=== PATIENT | female | born 1990 | race Caucasian/White ===

== ENCOUNTER 2016-04-10 18:21 | Emergency (ER) | payer OTHER, BC, MEDICAID ==
[~2016-04-10] VITALS: Ht 167.6 cm; Wt 97.0 kg
[~2016-04-10 18:21] MED LIST: BIRTH CONTROL; CHERATUSSIN AC120 ML PO; NORCO 325 MG-51 TAB PO; QVAR0.08 MG/AC IH; SEPTRA DS 8001 TAB PO; VENTOLIN0.09 MG IH; ZITHROMAX TRI-500 MG PO
[2016-04-10] MEDS ORDERED: ALLEGRA 60MG TA60 MG PO (18:29)
[2016-04-10 18:30] VITALS: TEMP 98.4
[2016-04-10] MEDS ORDERED: PRENATAL1 TA7 PO (18:30)
[2016-04-10 19:31] LABS: PH 6 (5-8); SQUAMOUS EPITHELIAL 0-2 /hpf; URINE APPEARANCE Hazy; URINE BACTERIA Rare /hpf; URINE BILIRUBIN Negative (NEGATIVE); URINE BLOOD Negative (NEGATIVE); URINE COLOR Yellow; URINE GLUCOSE Negative (NEGATIVE); URINE KETONE Negative (NEGATIVE); URINE RBC 0-2 /hpf; URINE UROBILINOGEN Negative (NEGATIVE); URINE WBC 0-2 /hpf
[2016-04-10 19:43] LABS: BASO % 0.2 % (0.0-2.0); EOS # 0.4 (0.0-0.7); EOS % 2.8 % (0-4.0); GRAN # 10.5 (1.4-6.5); GRAN % 74.6 % (42.2-75.2); HEMATOCRIT 38.1 % (37.0-47.0); HEMOGLOBIN 13.2 g/dl (12.5-16.0); LYMPH # 2.4 (1.2-3.4); LYMPH % 17.1 % (20.0-51.0); MEAN CELL VOLUME 92 fl (80.0-100.0); MEAN CORPUSCULAR HEMOGLOBIN 32 pg (27.0-31.0); MEAN CORPUSCULAR HGB CONC 35 g/dl (33.0-37.0); MEAN PLATELET VOLUME 10.5 fl (7.4-10.4); MONO # 0.7 (0.1-0.6); PLATELET COUNT 223 K/mm3 (130-400); RED BLOOD COUNT 4.13 M/mm3 (4.10-5.30); WHITE BLOOD COUNT 14.1 K/mm3 (4.8-10.8)
[2016-04-10] MEDS ORDERED: FLAGYL500 MG PO (21:08)
[2016-04-10 21:32] VITALS: BP 128/70; PULSE 68
[2016-04-10 21:55] LABS: CHLAMYDIA/TRACH by PCR Female NOT DETECTED; NEISSERIA GON by PCR Female NOT DETECTED
== END 2016-04-10 21:33 | disposition home or self-care (01) ==
LOC: COL.ER 18:21
PROVIDERS: Nurse Practitioner
DX: O23.591 Infection of other part of genital tract in pregnancy, first trimester (principal); N76.0 Acute vaginitis; B96.89 Other specified bacterial agents as the cause of diseases classified elsewhere; R10.2 Pelvic and perineal pain; Z3A.01 Less than 8 weeks gestation of pregnancy

== ENCOUNTER 2016-10-30 16:38 | Emergency (ER) | payer BC, MEDICAID ==
[~2016-10-30] VITALS: Ht 167.6 cm; Wt 108.6 kg
[~2016-10-30 16:38] MED LIST changes: +ALLEGRA 60MG TA60 MG PO; +FLAGYL500 MG PO; +PRENATAL1 TA7 PO
[2016-10-30] MEDS ORDERED: PULMICORT180 MCG/Ac IH (16:44)
[2016-10-30] MEDS ORDERED: FLONASEALLERGY NS (16:44)
[2016-10-30] MEDS ORDERED: ALLEGRA 180MG180 MG PO (16:45)
[2016-10-30 17:50] LABS: MEAN CELL VOLUME 94 fl (80.0-100.0); MEAN CORPUSCULAR HEMOGLOBIN 32 pg (27.0-31.0); MEAN CORPUSCULAR HGB CONC 34 g/dl (33.0-37.0); MEAN PLATELET VOLUME 10.8 fl (7.4-10.4); PLATELET COUNT 197 K/mm3 (130-400); RED BLOOD COUNT 3.77 M/mm3 (4.10-5.30); REDCELL DISTRIBUTION WIDTH-CV 13.7 % (11.5-14.5)
[2016-10-30 17:59] LABS: INR 1.1 (0.8-3.0); PROTHROMBIN TIME 11.7 SECONDS (9.7-12.8)
[2016-10-30 18:00] LABS: ADD PATHOLOGY DIFF REVIEW NO; ADJUSTED CALCIUM 9.9 mg/dL (8.4-10.2); ALANINE AMINOTRANSFERASE 40 U/L (9-52); ALBUMIN 3.5 gm/dL (3.5-5.0); ALKALINE PHOSPHATASE 125 U/L (50-136); ANION GAP 12 mmol/L (7-16); BILIRUBIN,TOTAL 0.5 mg/dL (0.0-1.0); BLOOD UREA NITROGEN 11 mg/dL (7-17); CALCIUM 9.5 mg/dL (8.4-10.2); CARBON DIOXIDE 17 mmol/L (22-30); CHLORIDE 108 mmol/L (98-107); CREATININE, serum 0.66 mg/dL (0.52-1.25); GLUCOSE 115 mg/dL (74-106); HEMATOCRIT 35.6 % (37.0-47.0); POTASSIUM 3.9 mmol/L (3.4-5.0); SODIUM 137 mmol/L (137-145); TOTAL PROTEIN 6.7 gm/dL (6.4-8.2)
[2016-10-30 18:11] LABS: TROPONIN-I < 0.012 ng/mL (0.000-0.034)
[2016-10-30 18:29] LABS: PH 5 (5-8); URINE APPEARANCE Cloudy; URINE BACTERIA Rare /hpf; URINE BILIRUBIN Negative (NEGATIVE); URINE BLOOD Negative (NEGATIVE); URINE COLOR Amber; URINE GLUCOSE Negative (NEGATIVE); URINE KETONE Negative (NEGATIVE); URINE UROBILINOGEN Negative (NEGATIVE)
[2016-10-30 18:49] LABS: BAND 14 % (0-10); EOSINOPHIL 1 % (0-4); NEUTROPHILS 77 % (42.0-75.2); TOTAL CELLS COUNTED 100
[2016-10-30 18:50] LABS: PLATELET ESTIMATE NORMAL (NORMAL)
[2016-10-30] MEDS ORDERED: MACROBID 1100 MG/CAP PO (21:44)
[2016-10-30 22:23] VITALS: BP 120/72; PULSE 93; TEMP 97.8
== END 2016-10-30 22:25 | disposition home or self-care (01) ==
LOC: COL.ER 16:38
PROVIDERS: Emergency Medicine
DX: N39.0 Urinary tract infection, site not specified (principal); R00.2 Palpitations; R07.2 Precordial pain; J45.909 Unspecified asthma, uncomplicated
CPT/HCPCS: J0696; J7030; Q9967

== ENCOUNTER 2016-11-02 02:37 | Inpatient (IN) | payer BC, MEDICAID ==
[~2016-11-02] VITALS: Ht 167.6 cm; Wt 108.6 kg
[2016-11-02] VITALS (22 sets, daily range): BP systolic 110–160; BP diastolic 59–98; PULSE 61–99; TEMP 97.3–98.5
[~2016-11-02 02:37] MED LIST changes: +ALLEGRA 180MG180 MG PO; +FLONASEALLERGY NS; +MACROBID 1100 MG/CAP PO; +PULMICORT180 MCG/Ac IH
[2016-11-02] MEDS ORDERED: TYLENOL 500MG500 MG PO (02:54)
[2016-11-02 03:05] LABS: BASO % 0.3 % (0.0-2.0); EOS # 0.2 (0.0-0.7); EOS % 1.2 % (0-4.0); GRAN # 12.4 (1.4-6.5); GRAN % 79.9 % (42.2-75.2); HEMOGLOBIN 12.1 g/dl (12.5-16.0); LYMPH # 1.8 (1.2-3.4); LYMPH % 11.7 % (20.0-51.0); MEAN CELL VOLUME 93 fl (80.0-100.0); MEAN CORPUSCULAR HEMOGLOBIN 32 pg (27.0-31.0); MEAN CORPUSCULAR HGB CONC 34 g/dl (33.0-37.0); MEAN PLATELET VOLUME 11.3 fl (7.4-10.4); MONO % 6.3 % (1.7-9.3); PLATELET COUNT 191 K/mm3 (130-400); REDCELL DISTRIBUTION WIDTH-CV 13.5 % (11.5-14.5); WHITE BLOOD COUNT 15.5 K/mm3 (4.8-10.8)
[2016-11-02 03:10] LABS: HEMATOCRIT 35.5 % (37.0-47.0)
[2016-11-02 03:14] LABS: PARTIAL THROMBOPLASTIN TIME 30.8 SECONDS (26.0-37.0)
[2016-11-02 03:19] LABS: ALBUMIN 3.1 gm/dL (3.5-5.0); BILIRUBIN,TOTAL 0.5 mg/dL (0.0-1.0); CALCIUM 9.3 mg/dL (8.4-10.2); CREATININE, serum 0.59 mg/dL (0.52-1.25); POTASSIUM 3.8 mmol/L (3.4-5.0); TOTAL PROTEIN 6.5 gm/dL (6.4-8.2)
[2016-11-02 03:53] LABS: PH 6 (5-8); SQUAMOUS EPITHELIAL 0-2 /hpf; URINE APPEARANCE Clear; URINE BACTERIA None Seen /hpf; URINE BILIRUBIN Negative (NEGATIVE); URINE BLOOD Negative (NEGATIVE); URINE COLOR Yellow; URINE GLUCOSE Negative (NEGATIVE); URINE KETONE Negative (NEGATIVE); URINE RBC 0-2 /hpf; URINE UROBILINOGEN Negative (NEGATIVE); URINE WBC 0-2 /hpf
[2016-11-02 10:33] LABS: AMPHETAMINE URINE NEGATIVE; BARBITURATES URINE NEGATIVE; BENZODIAZEPINES URINE NEGATIVE; BUPRENORPHINE URINE NEGATIVE; METHADONE URINE NEGATIVE; OPIATES URINE NEGATIVE; OXYCODONE URINE NEGATIVE; PHENCYCLIDINE URINE NEGATIVE; PROPOXYPHENE URINE NEGATIVE; THC CANNABINOIDS URINE NEGATIVE
[2016-11-03 07:34] VITALS: BP 129/62; PULSE 79; TEMP 97.5
[2016-11-03] MEDS ORDERED: BREASTPUMP MC (08:54)
[2016-11-03] MEDS ORDERED: PERCOCET 325 MG1 TA2 PO (08:54)
[2016-11-03] MEDS ORDERED: IBU800 M1 PO (08:54)
[2016-11-03 10:57] LABS: HEMATOCRIT 28.3 % (37.0-47.0); HEMOGLOBIN 9.5 g/dl (12.5-16.0)
[2016-11-03 20:40] VITALS: BP 126/66; PULSE 97; TEMP 97.5
[2016-11-04 07:59] VITALS: BP 114/61; PULSE 76; TEMP 97.7
[2016-11-04 15:58] VITALS: BP 125/62; PULSE 85; TEMP 97.4
[2016-11-04 21:00] VITALS: BP 124/67; PULSE 79; TEMP 98.4
[2016-11-05 07:11] VITALS: BP 125/68; PULSE 67; TEMP 98.3
[2016-11-05 11:17] VITALS: BP 126/67; PULSE 78; TEMP 98.3
== END 2016-11-05 13:25 | disposition home or self-care (01) | DRG 765 ==
LOC: LDRO 02:37 → LDR 02:40 → OB 02:40
PROVIDERS: Obstetrics & Gynecology
PROC: 10D00Z1 Extraction of Products of Conception, Low, Open Approach (ICD-10-PCS; principal; 2016-11-02)
DX: O45.93 Premature separation of placenta, unspecified, third trimester (principal); O75.3 Other infection during labor; D62 Acute posthemorrhagic anemia; O99.02 Anemia complicating childbirth; O13.4 Gestational [pregnancy-induced] hypertension without significant proteinuria, complicating childbirth; O75.89 Other specified complications of labor and delivery; O99.713 Diseases of the skin and subcutaneous tissue complicating pregnancy, third trimester; L30.9 Dermatitis, unspecified; Z3A.38 38 weeks gestation of pregnancy; Z37.0 Single live birth
CPT/HCPCS: J0690; J1885; J2270; J2370; J2405; J2590; J7120

== ENCOUNTER 2017-02-13 | Emergency (ER) | payer BC ==
[~2017-02-13] VITALS: Ht 167.6 cm; Wt 94.5 kg
[~2017-02-13] MED LIST changes: +BREASTPUMP MC; +IBU800 M1 PO; +PERCOCET 325 MG1 TA2 PO; +TYLENOL 500MG500 MG PO
[2017-02-13 00:03] VITALS: BP 125/75; TEMP 98
[2017-02-13] MEDS ORDERED: SINGULAIR 110 MG/TAB PO (00:09)
[2017-02-13] MEDS ORDERED: PROZAC 20MG20 MG PO (00:09)
[2017-02-13] MEDS ORDERED: FLEXERIL 1010 MG/TAB PO (01:06)
[2017-02-13 01:42] VITALS: PULSE 91
== END 2017-02-13 01:43 | disposition home or self-care (01) ==
LOC: COL.ER
DX: S16.1XXA Strain of muscle, fascia and tendon at neck level, initial encounter (principal); X50.0XXA Overexertion from strenuous movement or load, initial encounter

== ENCOUNTER → 2019-03-06 | Outpatient (CLI) | payer BC ==
[~2019-03-06] MED LIST changes: +FLEXERIL 1010 MG/TAB PO; +PROZAC 20MG20 MG PO; +SINGULAIR 110 MG/TAB PO
== END ==
LOC: MC.RAD 10:00
DX: N64.52 Nipple discharge (principal)

== ENCOUNTER → 2019-07-14 | Outpatient (CLI) | payer BC | LOC: COL.RAD 12:45 | DX: N83.202 Unspecified ovarian cyst, left side (principal) ==

== ENCOUNTER → 2019-07-21 | Outpatient (CLI) | payer BC | LOC: COL.ER 18:37 → COL.RAD 18:37 → EDSTATUS 18:57 | DX: N83.202 Unspecified ovarian cyst, left side (principal); N93.9 Abnormal uterine and vaginal bleeding, unspecified; Z97.5 Presence of (intrauterine) contraceptive device ==

== ENCOUNTER → 2019-11-03 | Outpatient (CLI) | payer BC | LOC: BHSO 11:06 | DX: F43.10 Post-traumatic stress disorder, unspecified (principal) ==

== ENCOUNTER → 2019-12-01 | Outpatient (CLI) | payer BC | LOC: BHSO 08:37 | DX: F43.10 Post-traumatic stress disorder, unspecified (principal) | CPT/HCPCS: G0463 ==

== ENCOUNTER → 2020-10-21 | Outpatient (CLI) | payer BC ==
[~2020-10-21] VITALS: Ht 167.6 cm; Wt 107.8 kg
[~2020-10-21] MED LIST changes: +LAMICTAL 100MG100 MG PO; +PRENATAL TABLET PO; +PRILOSEC 20MG20 MG PO; +PRISTIQ100 MG PO
[2020-10-21 11:29] VITALS: BP 132/88; PULSE 68; TEMP 97.9
[2020-10-21 12:25] VITALS: BP 117/84; PULSE 78
== END ==
LOC: COL.RAD 11:15
DX: M51.26 Other intervertebral disc displacement, lumbar region (principal); M47.816 Spondylosis without myelopathy or radiculopathy, lumbar region; M48.062 Spinal stenosis, lumbar region with neurogenic claudication
CPT/HCPCS: J3301

== ENCOUNTER 2021-09-15 03:44 | Emergency (ER) | payer BC ==
[~2021-09-15] VITALS: Ht 167.6 cm; Wt 97.7 kg
[2021-09-15 03:51] VITALS: TEMP 98.6
[2021-09-15] MEDS ORDERED: PREDNISONE20 MG PO (04:34)
[2021-09-15] MEDS ORDERED: PROAIR HFA0.09 MG/AC IH (04:34)
[2021-09-15 04:42] VITALS: BP 141/93; PULSE 107
[2021-09-15] MEDS ORDERED: DAILY MULTIPLE1 T18 (10:14)
[2021-09-15] MEDS ORDERED: FLEXERIL 1010 MG/TAB PO (10:16)
[2021-09-15] MEDS ORDERED: CONTRAVE1 TER PO (10:16)
[2021-09-15] MEDS ORDERED: PROBIOTIC GOLD1 EACH PO (12:21)
== END 2021-09-15 04:44 | disposition home or self-care (01) ==
LOC: COL.ER 03:44
DX: U07.1 COVID-19 (principal)
CPT/HCPCS: J7512

== ENCOUNTER 2021-09-15 07:59 | Inpatient (IN) | payer BC ==
[~2021-09-15] VITALS: Ht 167.6 cm; Wt 96.2 kg
[~2021-09-15 07:59] MED LIST changes: +PREDNISONE20 MG PO; +PROAIR HFA0.09 MG/AC IH
[2021-09-15 08:53] LABS: HEMATOCRIT 38.4 % (37.0-47.0); HEMOGLOBIN 13.1 g/dl (12.5-16.0); MEAN CELL VOLUME 89 fl (80.0-100.0); MEAN CORPUSCULAR HEMOGLOBIN 31 pg (27-31); MEAN CORPUSCULAR HGB CONC 34 g/dl (33.0-37.0); MEAN PLATELET VOLUME 10.2 fl (7.4-10.4); PLATELET COUNT 243 K/mm3 (130-400)
[2021-09-15 09:11] LABS: ALANINE AMINOTRANSFERASE 38 U/L (0-55); ALBUMIN 3.9 gm/dL (3.5-5.0); ALKALINE PHOSPHATASE 105 U/L (40-150); ANION GAP 11 mmol/L (7-16); AST,SGOT 17 U/L (5-34); BILIRUBIN,TOTAL 0.4 mg/dL (0.2-1.2); BLOOD UREA NITROGEN 12 mg/dL (7-19); CALCIUM 9.3 mg/dL (8.4-10.2); CARBON DIOXIDE 22 mmol/L (22-29); CHLORIDE 107 mmol/L (98-107); CREATININE, serum 0.87 mg/dL (0.57-1.11); GLUCOSE 113 mg/dL (70-99); POTASSIUM 3.9 mmol/L (3.5-4.5); SODIUM 140 mmol/L (136-145); TOTAL PROTEIN 7.4 gm/dL (6.2-8.1)
[2021-09-15 09:20] LABS: TROPONIN-I < 0.010 ng/mL (0.00-0.033)
[2021-09-15 09:26] LABS: BAND 6 % (0-10); LYMPHOCYTE 3 % (20.0-51.0); NEUTROPHILS 90 % (42.0-75.2); PLATELET ESTIMATE NORMAL (NORMAL)
[2021-09-15] MEDS ORDERED: DAILY MULTIPLE1 T18 (10:14)
[2021-09-15] MEDS ORDERED: CONTRAVE1 TER PO (10:16)
[2021-09-15] MEDS ORDERED: FLEXERIL 1010 MG/TAB PO (10:16)
[2021-09-15 12:20] VITALS: BP 124/75; PULSE 107; TEMP 98.3
[2021-09-15] MEDS ORDERED: PROBIOTIC GOLD1 EACH PO (12:21)
[2021-09-15 15:58] VITALS: BP 126/60; PULSE 102; TEMP 98.4
--- NOTE | 2021-09-15 18:10 | NUR ---
Patient laying in bed, A&Ox4. VSS 2L NC O2, no reported SOB. IV CDI, fluids infusing. Denies pain and discomfort. Independent in the room. Droplet/contact precautions in place. Call light within reach
[2021-09-15 20:38] VITALS: BP 131/74; PULSE 92; TEMP 98.7
[2021-09-15 23:25] VITALS: BP 142/79; PULSE 89; TEMP 98.7
--- NOTE | 2021-09-16 01:41 | NUR ---
BEGINNING OF SHIFT NOTE: PATIENT RESTING QUIETLY IN BED. PATIENT REPORTS FEELING BETTER THAN SHE HAD BUT STILL GETS SHORT OF BREATH WITH EXERTION AND PROLONGED SPEECH. PATIENT ON 2L/NC AND TOLERATING WELL.
[2021-09-16 04:02] VITALS: BP 136/79; PULSE 79; TEMP 97.6
[2021-09-16 05:50] LABS: HEMATOCRIT 37.9 % (37.0-47.0); HEMOGLOBIN 12.4 g/dl (12.5-16.0); MEAN CELL VOLUME 92 fl (80.0-100.0); MEAN CORPUSCULAR HEMOGLOBIN 30 pg (27-31); MEAN CORPUSCULAR HGB CONC 33 g/dl (33.0-37.0); MEAN PLATELET VOLUME 10.3 fl (7.4-10.4); PLATELET COUNT 275 K/mm3 (130-400); RED BLOOD COUNT 4.13 M/mm3 (4.10-5.30); REDCELL DISTRIBUTION WIDTH-CV 13.1 % (11.5-14.5)
--- NOTE | 2021-09-16 06:00 | NUR ---
SHIFT SUMMARY: PATIENT RESTED QUIETLY THIS SHIFT. PATIENT HAD NO COMPLAINTS OF PAIN AND RECEIVED NO PRN MEDICATION. LR INFUSING AT 100ML/HR WITH NO DIFFICULTIES. PATIENT DENIED CONCERNS.
[2021-09-16 06:02] LABS: CALCIUM 9.3 mg/dL (8.4-10.2); CREATININE, serum 0.75 mg/dL (0.57-1.11); POTASSIUM 4.1 mmol/L (3.5-4.5)
[2021-09-16 07:11] LABS: BAND 6 % (0-10); LYMPHOCYTE 5 % (20.0-51.0); NEUTROPHILS 88 % (42.0-75.2); PLATELET ESTIMATE NORMAL (NORMAL)
[2021-09-16 08:36] VITALS: BP 132/75; PULSE 76
[2021-09-16 11:16] VITALS: BP 150/86; PULSE 80; TEMP 97.8
[2021-09-16 15:05] VITALS: BP 140/70; PULSE 92; TEMP 98.6
[2021-09-16 19:51] VITALS: BP 144/57; PULSE 95; TEMP 98.4
[2021-09-16 23:26] VITALS: BP 130/71; PULSE 74; TEMP 98.4
[2021-09-17 03:48] VITALS: BP 129/67; PULSE 68; TEMP 97.8
--- NOTE | 2021-09-17 06:18 | NUR ---
END OF SHIFT: PATIENT RESTED QUIETLY THIS SHIFT. PATIENT TOOK SHOWER INDEPENDENTLY. IV WORKING WELL PATIENT VOICED NO CONCERNS OR NEEDS. PATIENT REMAINED ON 1.5L OF OXYGEN.
[2021-09-17 06:54] LABS: CALCIUM 8.9 mg/dL (8.4-10.2); CREATININE, serum 0.72 mg/dL (0.57-1.11); POTASSIUM 4.2 mmol/L (3.5-4.5)
[2021-09-17 06:56] LABS: HEMATOCRIT 39.4 % (37.0-47.0); HEMOGLOBIN 12.8 g/dl (12.5-16.0); MEAN CELL VOLUME 94 fl (80.0-100.0); MEAN CORPUSCULAR HEMOGLOBIN 31 pg (27-31); MEAN CORPUSCULAR HGB CONC 33 g/dl (33.0-37.0); MEAN PLATELET VOLUME 10.7 fl (7.4-10.4); PLATELET COUNT 278 K/mm3 (130-400); RED BLOOD COUNT 4.19 M/mm3 (4.10-5.30); REDCELL DISTRIBUTION WIDTH-CV 13.5 % (11.5-14.5)
[2021-09-17 07:12] VITALS: BP 133/78; PULSE 74; TEMP 97.5
[2021-09-17 08:26] LABS: BAND 2 % (0-10); LYMPHOCYTE 4 % (20.0-51.0); NEUTROPHILS 94 % (42.0-75.2); PLATELET ESTIMATE NORMAL (NORMAL)
--- NOTE | 2021-09-17 09:23 | NUR ---
Scheduled medications given. Shift assessment preformed. VSS. Patient A&O. Currently requring 1.5 L of O2 via nasal cannula. Dyspnea upon exertion noted. Non productive cough also noted. Patient denies any pain, discomfort, or further needs at this time. Call light in reach.
[2021-09-17 11:06] VITALS: BP 136/68; PULSE 73; TEMP 98.4
--- NOTE | 2021-09-17 11:06 | NUR ---
A Auxiliary attempted to contact patient via room phone and cell phone. Message left. SW spoke with RT who advised patient does not need home oxygen. SW also spoke with RN who advised patient is independent in the room and will discharge today. Discharge Plan: Home
[2021-09-17] MEDS ORDERED: AMOXICILLIN 8751 TAB PO (11:25)
--- NOTE | 2021-09-17 14:35 | NUR ---
Patient deemed fit for discharge. IV DC'd catheter, catheter intact, no signs of phlebitis. Discharge education/instructions given. All questions answered. Patient denies any pain, discomfort, SOA, or further needs at this time. Patient escorted from building by wheelchair, escorted by [facility] Staff. transporting home.
== END 2021-09-17 13:00 | disposition home or self-care (01) | DRG 177 ==
LOC: COL.ER 07:59 → MEDICAL 10:38
PROVIDERS: Emergency Medicine; ADMIT Student in an Organized Health Care Education/Training Program
DX: U07.1 COVID-19 (principal); J96.01 Acute respiratory failure with hypoxia; J45.901 Unspecified asthma with (acute) exacerbation; F43.10 Post-traumatic stress disorder, unspecified; F32.A Depression, unspecified; F41.9 Anxiety disorder, unspecified; K21.9 Gastro-esophageal reflux disease without esophagitis; E66.9 Obesity, unspecified; Z72.89 Other problems related to lifestyle; Z91.011 Allergy to milk products; Z91.018 Allergy to other foods; Z68.34 Body mass index [BMI] 34.0-34.9, adult; Z23 Encounter for immunization
CPT/HCPCS: J0456; J0696; J1100; J1650; J2920; J7050; J7120; Q9967

== ENCOUNTER 2023-11-16 23:23 | Emergency (ER) | payer BC ==
[~2023-11-16] VITALS: Ht 167.6 cm; Wt 109.1 kg
[~2023-11-16 23:23] MED LIST changes: +AMOXICILLIN 8751 TAB PO; +CONTRAVE1 TER PO; +DAILY MULTIPLE1 T18; +FLOVENT DI50 MCG/Act IH; +FOLIC ACID 11 MG/TA1 PO; +MOTRIN 800800 MG/TAB PO; +NATURAL IRON65 MG; +NEWMANS TOP; +PRENATAL; +PROBIOTIC GOLD1 EACH PO; +ZYRTEC 10MG10 MG PO; +ZYRTEC5 MG PO
[2023-11-16 23:28] VITALS: TEMP 96.9
[2023-11-16 23:45] LABS: BASO % 0.4 % (0.0-2.0); EOS # 0.8 K/mm3 (0.0-0.7); EOS % 7.3 % (0.0-4.0); GRAN # 6.6 K/mm3 (1.4-6.5); GRAN % 63.7 % (42.2-75.2); HEMATOCRIT 41.9 % (37.0-47.0); HEMOGLOBIN 14.4 g/dl (12.5-16.0); LYMPH # 2.5 K/mm3 (1.2-3.4); LYMPH % 23.6 % (20.0-51.0); MEAN CELL VOLUME 93 fl (80.0-100.0); MEAN CORPUSCULAR HEMOGLOBIN 32 pg (27-31); MEAN CORPUSCULAR HGB CONC 34 g/dl (33.0-37.0); MEAN PLATELET VOLUME 9.9 fl (7.4-10.4); MONO # 0.5 K/mm3 (0.1-0.6); MONO % 4.5 % (1.7-9.3); PLATELET COUNT 230 K/mm3 (130-400); RED BLOOD COUNT 4.53 M/mm3 (4.10-5.30); REDCELL DISTRIBUTION WIDTH-CV 13.9 % (11.5-14.5)
[2023-11-16 23:48] LABS: COLLECTION METHOD CLEAN CATCH
[2023-11-16 23:56] LABS: PH 5.5 (5.0-8.5); URINE APPEARANCE CLOUDY (CLEAR/HAZY); URINE BLOOD NEGATIVE (NEGATIVE); URINE COLOR YELLOW (YELLOW); URINE GLUCOSE NEGATIVE (NEGATIVE); URINE KETONE TRACE (NEGATIVE); URINE NITRATE NEGATIVE (NEGATIVE); URINE PROTEIN(semi-quant) TRACE (NEGATIVE)
[2023-11-16 23:58] LABS: ALANINE AMINOTRANSFERASE 16 U/L (0-55); ALBUMIN 3.9 g/dL (3.5-5.0); ALKALINE PHOSPHATASE 139 U/L (40-150); ANION GAP 12 mmol/L (7-16); AST,SGOT 13 U/L (5-34); BILIRUBIN,TOTAL 0.4 mg/dL (0.2-1.2); BLOOD UREA NITROGEN 16 mg/dL (7-19); CALCIUM 9.6 mg/dL (8.4-10.2); CHLORIDE 108 mEq/L (98-107); GLUCOSE 109 mg/dL (70-99); LIPASE 49 U/L (8-78); POTASSIUM 3.7 mEq/L (3.5-4.5); SODIUM 142 mEq/L (136-145); TOTAL PROTEIN 7.5 g/dl (6.2-8.1)
[2023-11-17 00:11] LABS: TROPONIN-I < 0.010 ng/mL (0.00-0.033)
[2023-11-17] MEDS ORDERED: MACROBID 1100 MG/CAP PO (00:48)
[2023-11-17] MEDS ORDERED: Nitrofurantoin (Mono/Macro) 100 MG CAP PO ONE (01:00)
[2023-11-17 01:01] VITALS: BP 128/70; PULSE 74
== END 2023-11-17 01:01 | disposition home or self-care (01) ==
LOC: COL.ER 23:23
PROVIDERS: Nurse Practitioner
DX: R07.89 Other chest pain (principal); N39.0 Urinary tract infection, site not specified; J45.909 Unspecified asthma, uncomplicated; K21.9 Gastro-esophageal reflux disease without esophagitis; Z79.899 Other long term (current) drug therapy

== ENCOUNTER 2023-12-02 18:12 | Emergency (ER) | payer BC ==
[~2023-12-02] VITALS: Ht 167.6 cm; Wt 106.8 kg
[2023-12-02 18:22] VITALS: TEMP 98.2
[2023-12-02] MEDS ORDERED: Albuterol/Ipratropium 3 MG-0.5 MG/3 ML Neb Soln IH ONE (19:45)
[2023-12-02 20:08] LABS: BASO # 0.1 K/mm3 (0.0-0.2); BASO % 0.5 % (0.0-2.0); EOS # 0.7 K/mm3 (0.0-0.7); EOS % 6.8 % (0.0-4.0); GRAN # 6.5 K/mm3 (1.4-6.5); GRAN % 65.9 % (42.2-75.2); HEMATOCRIT 39.6 % (37.0-47.0); HEMOGLOBIN 13.9 g/dl (12.5-16.0); LYMPH # 2.1 K/mm3 (1.2-3.4); LYMPH % 20.8 % (20.0-51.0); MEAN CELL VOLUME 92 fl (80.0-100.0); MEAN CORPUSCULAR HEMOGLOBIN 32 pg (27-31); MEAN CORPUSCULAR HGB CONC 35 g/dl (33.0-37.0); MEAN PLATELET VOLUME 10.2 fl (7.4-10.4); MONO # 0.6 K/mm3 (0.1-0.6); MONO % 5.8 % (1.7-9.3); PLATELET COUNT 218 K/mm3 (130-400); RED BLOOD COUNT 4.29 M/mm3 (4.10-5.30); REDCELL DISTRIBUTION WIDTH-CV 13.8 % (11.5-14.5)
[2023-12-02 20:12] LABS: ALBUMIN 3.6 g/dL (3.5-5.0); BILIRUBIN,TOTAL 0.2 mg/dL (0.2-1.2); CALCIUM 9.5 mg/dL (8.4-10.2); CREATININE, serum 0.85 mg/dL (0.57-1.11); POTASSIUM 4.2 mEq/L (3.5-4.5); TOTAL PROTEIN 7.3 g/dl (6.2-8.1)
[2023-12-02] MEDS ORDERED: Iohexol 300 - 100 ML VIAL IV ONE (20:30)
[2023-12-02] MEDS ORDERED: NS 50 ML IV SCH (20:31)
[2023-12-02] MEDS ORDERED: cefTRIAXone 2 G in Water For Injection,Sterile 20 ML IV ONE (21:00)
[2023-12-02] MEDS ORDERED: AMOXICILLIN 8751 TAB PO (21:13)
[2023-12-02] MEDS ORDERED: cefTRIAXone 1 G,Lidocaine PF 1% 2.1 ML IM ONE (21:15)
[2023-12-02 21:56] VITALS: BP 124/82; PULSE 64
== END 2023-12-02 21:57 | disposition home or self-care (01) ==
LOC: COL.ER 18:12
PROVIDERS: Family Medicine
DX: J18.9 Pneumonia, unspecified organism (principal)
CPT/HCPCS: J0696; J3475; Q9967

== ENCOUNTER → 2023-12-02 | Outpatient (CLI) | payer BC | LOC: COL.LAB 12:13 | DX: R06.02 Shortness of breath (principal) ==